=== PATIENT | male | born 1980 | race Hispanic/Latino ===

== ENCOUNTER 2025-03-30 17:48 | Emergency (ER) | payer OTHER ==
[~2025-03-30] VITALS: Ht 167.6 cm; Wt 70.8 kg
[2025-03-30 18:07] VITALS: PULSE 60; RESP 17; TEMP 98.1
[2025-03-30 18:29] LABS: BASOPHILS % 0.4 % (0.0-1.0); EOSINOPHILS % 2.0 % (0.0-6.0); LYMPHOCYTES % 33.7 % (18.0-39.1); MONOCYTES % 8.9 % (4.4-11.3); NEUTROPHILS % 54.9 % (38.7-80.0); RED CELL DISTRIBUTION WIDTH 12.7 % (11.7-14.4)
[2025-03-30 18:54] LABS: EST GLOMERULAR FILTRATION RATE 73 ML/MIN (>=60)
[2025-03-30 19:56] VITALS: BP 102/69; PULSE 61; RESP 19; O2SAT 97
== END 2025-03-30 19:45 | disposition home or self-care (01) ==
LOC: ER 18:22
DX: R07.89 Other chest pain (principal)
CPT/HCPCS: 36415; 71045; 80053; 82550; 84484; 85025; 93005; 99284